=== PATIENT | male | born 1990 | race Caucasian/White ===

== ENCOUNTER 2016-07-05 09:32 | Emergency (ER) | payer OTHER ==
--- NOTE | 2016-07-05 10:40 | DIAGNOSTIC IMAGING REPORT ---
PROCEDURE: XR CHEST 1 VIEW INDICATION: SHORTNESS OF BREATH, initial encounter TECHNIQUE: Portable AP view 10:23 a.m. COMPARISON: None. FINDINGS: Lungs are clear. Heart and mediastinum are normal. Thorax is normal. IMPRESSION: 1. Negative chest.
--- NOTE | 2016-07-05 13:05 | ED CLINICAL REPORT ---
Clinical Report - Physicians/Mid Levels [facility] [address] [place] [address] 07/05/2016 9:35 Patient: FABRICIO HUNTER Time Seen: 09:40; initial patient contact. Arrived- By private vehicle. Historian- patient. HISTORY OF PRESENT ILLNESS Chief Complaint: DYSPNEA. This started about 2 days ago and is still present. The dyspnea is described as moderate and is worsened by cough and is improved by rest. The patient has had sputum production, a cough, fever and chills. No sweating episodes, wheezing, dyspnea on exertion or chest pain or discomfort. No calf pain, foot swelling, orthopnea, anxiety or palpitations. Similar symptoms previously: None. Recent medical care: Not recently seen/assessed. REVIEW OF SYSTEMS The patient has had a nasal discharge, sinus drainage and a sore throat but not had weight loss. No nausea, vomiting or abdominal pain. All systems otherwise negative, except as recorded above. PAST HISTORY PROBLEMS: Cancer SURGERIES: Leg. Medications: None. Allergies: Compazine. Hydrocodone. SOCIAL HISTORY Current every day smoker. 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 ADDITIONAL NOTES The nursing notes have been reviewed with agreement regarding the chief complaint, PMH and patient medications and allergies. PHYSICAL EXAM Vital Signs: 07/05/2016 09:37 BP: 122/72. HR: 145. RR: 22. O2 saturation: 100%. Temp: 99.7 F. Pain level now: 8/10. Have been reviewed. Blood pressure normal. Tachycardic. Tachypneic. Temperature normal. Oxygen saturation normal. Appearance: Alert. No acute distress. Eyes: Eyes normal inspection. ENT: Dry mucous membranes present. CVS: Tachycardia. Heart sounds normal. Rhythm normal. Respiratory: No respiratory distress. Breath sounds normal. Abdomen: Soft and nontender. Skin: Skin warm and dry. Normal skin color. No rash. Extremities: No calf tenderness. No lower extremity edema. Neuro: Oriented X 3. LABS, X-RAYS, AND EKG EKG: EKG time: (1011). Narrow-complex tachycardia (ventricular rate 136). Sinus tachycardia. Normal P waves. Normal CHRISTIN. Normal QRS complex. Normal axis. Normal ST and T waves, QT and QTc. Prior EKG unavailable. The study has been interpreted contemporaneously by me. The study has been independently viewed by me. The EKG appears to be a good tracing. I agree with and confirm the computer reading of the EKG. Interpretation time: 1011. Laboratory Tests: UA-Culture if indicated: (LIDIA: 07/05/2016 10:02) ( [facility]) Final results Test Result Flag Units (Reference) URINE COLOR YELLOW URINE APPEARANCE CLEAR URINE GLUCOSE NEGATIVE (NEGATIVE) URINE BILIRUBIN NEGATIVE (NEGATIVE) URINE KETONE NEGATIVE (NEGATIVE) URINE SPECIFIC GRAVITY 1.020 (1.010-1.030) URINE PH 8.5 H (5.0-8.0) URINE PROTEIN NEGATIVE (NEGATIVE) URINE UROBILINOGEN 0.2 EU/dL (0.2-1.0) URINE NITRITE NEGATIVE (NEGATIVE) URINE BLOOD NEGATIVE (NEGATIVE) URINE LEUK ESTERASE NEGATIVE (NEGATIVE) URINE RBC 0-1 rbc/hpf (0-1) URINE WBC RARE wbc/hpf (0-1) URINE EPITHELIAL CELLS NONE SEEN EPI/hpf (0-5) URINE BACTERIA NONE SEEN (NONE SEEN) URINE COMMENT CULT NOT INDICATED RARE CALCIUM PHOSPHATE CRYSTALSURINE CULTURES ARE SET-UP BASED ON THE FOLLOWING CRITERIA:POSITIVE NITRITEPOSITIVE LEUKOCYTE ESTERASEGREATER THAN 10 WHITE BLOOD CELLSMODERATE (2+) OR GREATER BACTERIA CBC w Diff: (LIDIA: 07/05/2016 09:55) ( [facility] 07/05/2016 10:36) Final results Test Result Flag Units (Reference) WHITE BLOOD COUNT 9.8 K/uL (4.5-11.5) RED BLOOD COUNT 4.72 M/uL (4.50-5.90) HEMOGLOBIN 13.6 gm/dL (13.5-17.5) HEMATOCRIT 41.8 % (41.0-53.0) MEAN CELL VOLUME 89 fL (80-100) MEAN CORPUSCULAR HGB 29 pg (26-34) MEAN CORPUSCULAR HGB CONC 33 g/dL (31-37) RED CELL DISTRIBUTION WIDTH 13.0 % (11.6-14.8) PLATELET COUNT 219 K/uL (150-400) POLY % 85 H % (50-75) BAND % 1 % (0-8) LYMPH 7 L % (25-40) MONO 6 % (3-14) EOSINOPHIL % 1 % (0-4) BASOPHIL % 0 % (0-2) METAMYELOCYTE % 0 % (0-1) MYELOCYTE 0 % (0-1) OTHER CELL TYPE 0 PT with INR: (LIDIA: 07/05/2016 09:55) ( [facility] 07/05/2016 10:22) Final results Test Result Flag Units (Reference) INR 0.9 (0.8-1.2) Low Intensity Therapy: INR 1.5-2.0 PT range 18.5-23.1Mod.Intensity Therapy: INR 2.0-3.0 PT range 23.1-31.5High Intensity Therapy: INR 2.5-3.5 PT range 27.4-35.5High Intensity Therapy 2: INR 3.0-4.0 PT range 31.5-39.3 APTT 32 SECONDS (24-34) D-DIMER QUANTITATIVE < 0.27 L ug/mLFEU (0.27-0.52) The primary value of this quantitative assay relates toits negative predictive value (i.e. exclusion) of pulmonaryembolism/deep vein thrombosis/DIC.Elevated levels of d-dimer may also occur with:, age, cancer, inflammation, liver disease,post-op, infection, hematoma, coronary disease, peripheralarteriopathy, bleeding disorders and thrombolytic treatment.Results should be correlated with other clinical andradiological data.Testing Methodology: Latex Immunoassay BNP: (LIDIA: 07/05/2016 09:55) ( [facility] [place]30) Final results Test Result Flag Units (Reference) B-TYPE NATRIURETIC PEPTIDE < 5.0 L pg/ml (5-100) CHEM 13 PANEL: (LIDIA: 07/05/2016 09:55) ( [facility] 10[facility]36) Final results Test Result Flag Units (Reference) GLUCOSE 89 mg/dL (70-110) BUN 13 mg/dL (7-18) CREATININE 1.0 mg/dL (0.6-1.3) Estimated GFR >60 mL/min Estimated GFR- >60 mL/min Note: Persistent reduction over 3 months in eGFR<60 mL/min/1.73 m2 defines CKD. Patients with eGFR values>=60 mL/min/1.73 m2 may also have CKD if evidence ofpersistent proteinuria. Additional information may be foundat www.kidney.org. SODIUM 141 mmol/L (136-145) POTASSIUM 4.3 mmol/L (3.5-5.1) CHLORIDE 105 mmol/L (98-107) CARBON DIOXIDE 31 mmol/L (21-32) CALCIUM 8.5 mg/dL (8.5-10.1) TOTAL PROTEIN 6.5 g/dL (6.4-8.2) ALBUMIN 3.5 g/dL (3.3-5.0) BILIRUBIN, TOTAL 0.1 mg/dL (0.0-1.0) ALKALINE PHOSPHATASE 79 U/L (46-116) AST (SGOT) 17 U/L (15-37) ALT (SGPT) 29 U/L (12-78) CPK 88 U/L (24-260) MAGNESIUM 1.6 L mg/dL (1.8-2.4) TROPONIN I <0.05 L ng/mL (0.00-1.5) TROPONIN REFERENCE RANGE:<0.1 NEGATIVE0.1-1.5 INDETERMINANT>1.5 POSITIVE Rapid Influenza Screen: (LIDIA: 07/05/2016 10:52) ( [facility] 07/05/2016 11:19) Final results SPECIMEN DESCRIPTION: ... Test Result Flag Units (Reference) RAPID INFLUENZA SCREEN CALLED TO: [facility] -- DATE: 07/05/16 INFLUENZA A: POSITIVE SCREEN FOR INFLUENZA A INFLUENZA B: NEGATIVE SCREEN FOR INFLUENZA B . PROGRESS AND PROCEDURES Disposition: Discharged home in good and improved condition. Condition: good. CLINICAL IMPRESSION Influenza type A with upper respiratory infection. INSTRUCTIONS Alternate Tylenol (Acetaminophen) or Motrin (Ibuprofen) for fever. Take according to label instructions. Rest at home today and tomorrow. Prescription Medications: Tamiflu 75 mg: take 1 capsule orally every 12 hours for 5 days. No refill. Substitution is permissible. Follow-up: Screening today revealed the patient's blood pressure to be in the normal range. (Electronically signed by Jimmie Butler Dr. 07/05/2016 22:37)
--- NOTE | 2016-07-05 13:05 | ED ORDER SUMMARY ---
..... Patient: FABRICIO HUNTER OrderSheet [facility] VisitID: [id number] [address] [place] [address] 26y, M Registration Date/Time: 07/05/2016 ORDER SHEET Weight: 22.6 kg (stated) Allergies: Compazine, Hydrocodone GENERAL ORDERS: Chest 1V Urgent (:07/05/2016 Jay Jay Solis) (Ack 10:00 LNations ER Tech1) UA-Culture if indicated Urgent (:07/05/2016 Jay Jay Solis) (Ack 10:00 LNations ER Tech1) PT with INR Urgent (:07/05/2016 Jay Jay Solis) (Ack 10:00 LNations ER Tech1) PTT Urgent (:07/05/2016 Jay Jay Solis) (Ack 10:00 LNations ER Tech1) Cardiac Panel Stat (:07/05/2016 Jay Jay Solis) (Ack 10:00 LNations ER Tech1) BNP Urgent (:07/05/2016 Jay Jay Solis) (Ack 10:00 LNations ER Tech1) D-Dimer Urgent (:07/05/2016 Jay Jay Solis) (Ack 10:00 LNations ER Tech1) EKG - ER Stat (:07/05/2016 Jay Jay Solis) (Ack 10:00 LNations ER Tech1) (10:11 LNations ER Tech1) Rapid Influenza Screen (Nasal Pharyngeal) (...) Urgent (10:41 07/05/2016 Jay Jay Solis) (Ack 10:43 LNations ER Tech1) MEDICATION ORDERS: IV FLUIDS: IV NS : initial bolus none -, then 1000 mL/hr for X1 (NOW) (09:42 07/05/2016 Jay Jay Solis) (Ack 9:46 Hoang R.N.) (10:10 DBblanca R.N.) Morphine IV 2 mg (HIGH ALERT MEDICATION, NOW) (10:07/05/2016 Jay Jay Solis) (10:57 Jannet R.N.) Previously tolerated Zofran IV 4 mg (NOW) (10:28 07/05/2016 Jay Jay Solis) (10:57 Jannet Pearson) Previously tolerated IV NS : initial bolus none -, then 1000 mL/hr for X1 (NOW) (11:24 07/05/2016 Jay Jay Solis) (11:39 Jannet Pearson) ORDER SHEET NOTES: [Electronically signed by Mu Caba R.N. (18:46 07/05/2016)] [Electronically signed by Jimmie Butler Dr. (22:37 07/05/2016)] [Electronically locked/signed by Mu Caba R.N. (18:46 07/05/2016)]
--- NOTE | 2016-07-05 13:05 | ED NURSING NOTES ---
Clinical Report - Nurses [facility] [address] [place] [address] 07/05/2016 9:35 Patient: FABRICIO HUNTER TRIAGE Triage time 09:37. Acuity: LEVEL 3. Chief Complaint: FEVER. Alert. COBY COMA SCORE: [place] Coma Scale: 15- eyes open spontaneously (4); best verbal response- oriented x 4 (5); best motor response- obeys commands (6). --09:42 Tomasa Mariee R.N. 09:37 07/05/16. BP: 122/72. HR: 145. RR: 22. O2 saturation: 100% on room air. Temp: 99.7 F (oral). Pain level now: 01/05. --09:42 Tomasa Mariee R.N. Weight: 22.6 kg stated. Height/Length: 67 inches Per Patient. BMI: 7.8. --09:40 Tomasa Mariee R.N. Medications None. --09:38 Tomasa Mariee R.N. Medication/allergy information source: the patient. --09:42 Tomasa Mariee R.N. Allergies Compazine. Hydrocodone. --09:38 Tomasa Mariee R.N. History Arrived by private vehicle. Historian: patient. Accompanied by friend. Primary physician (Shaheed). Onset. (about 2 days). ( no BM x2 days). SOCIAL HX: Heavy tobacco smoker- less than 1 pack per day. 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 No alcohol use. FALL RISK ASSESSMENT: Fall risk assessment completed. No fall risk identified. FUNCTIONAL ASSESSMENT: Functional assessment: no impairments noted. LEARNING NEEDS ASSESSMENT: The learning needs assessment revealed no barriers. --09:42 Tomasa Mariee R.N. 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 (0900). --10:09 Tomasa Mariee R.N. PROBLEMS: Cancer. --09:39 Kodi, Tomasa, R.N. ADDITIONAL SURGERIES: Leg. --09:39 Tomasa Mariee R.N. Assessment GENERAL / NEURO / PSYCH: The patient is awake and alert, is oriented and cooperative and appears uncomfortable. He has good eye contact. RESPIRATORY: Respirations not labored. SKIN: Skin is warm and dry. --09:42 Tomasa Mariee R.N. Interventions ID and allergy band on patient. To treatment room. --09:42 Tomasa Mariee R.N. PHYSICAL ASSESSMENT 10:07/05/16. To room via wheelchair. Patient gowned. GENERAL / NEURO / PSYCH: The patient is awake and alert, is oriented and cooperative and has good eye contact. RESPIRATORY: Respirations not labored. CVS: Cardiac rhythm: sinus tachycardia. SKIN: Skin is warm and dry. --10:09 Tomasa Mariee R.N. GENERAL / NEURO / PSYCH: Appears in distress. HEENT: Pupils equal, round and reactive to light. CVS: Cardiac rhythm: sinus tachycardia. SKIN: Skin is warm. Skin is diaphoretic. --10:14 Mu Caba R.N. NURSING PROGRESS NOTES 09:55 07/05/2016 Site #1 started via IV in the left antecubital space with an 20g angiocath, with aseptic technique and good blood return; two attempts. Blood drawn: rainbow set and cultures x1. Labeled in the presence of the patient and sent to the lab. --10:08 Tomasa Mariee R.N. 10:00 07/05/2016 Started bag #1 1000 mL IV Fluids IV NS (Saline); bolus of 1000 mL wide open via site #1. Allergies verified and confirmed 5 rights. IV patency established. IV site checked: no pain, redness, or swelling. IV flushed thoroughly pre- and post-medication administration. Completed per protocol (Started by tomasa). --10:10 Mu Caba R.N. 10:07/05/16. cotton weigher operator, pulse oximeter and NIBP monitor placed on patient. Patient gowned. Head of bed elevated. Call light placed in reach. Side rails up x 2. Bed placed in lowest position. Brakes of bed on. --10:07 Kodi, Tomasa, R.N. EKG time: (1011). EKG was ordered, performed by a tech and shown to the ED physician. --10:12 Jolanta Sparks, CULLEN Tech1 10:52 07/05/2016 Zofran (Ondansetron HCl) IVP 4 mg given over 2 minute(s) via site #1. Allergies verified and confirmed 5 rights. IV patency established. IV site checked: no pain, redness, or swelling. IV flushed thoroughly pre- and post-medication administration. IVP given by RN. --10:57 Mu Caba R.N. 10:57 07/05/2016 Morphine IVP 2 mg given over 2 minute(s) via site #1. Allergies verified, confirmed 5 rights and sedative warning given to the patient. IV patency established. IV site checked: no pain, redness, or swelling. IV flushed thoroughly pre- and post-medication administration. IVP given by RN. --10:57 Mu Caba R.N. 10:57 07/05/2016 IV Fluids IV NS Discontinued: bag #1 infused. Total amount infused: 1000 mL. IV patency established. IV site checked: no pain, redness, or swelling. IV flushed thoroughly. --10:57 Mu Caba R.N. 10:58 07/05/16. BP: 95/47. HR: 118. RR: 16. O2 saturation: 100%. Pain level now 8/10. --10:58 Mu Caba R.N. 11:20 07/05/16. Critical value relayed to ED by lab. Critical value received by RN. + flu A. Critical value read back. ED physician notifed of critical value. --11:20 Tomasa Mariee R.N. 11:29 07/05/2016 Started bag #1 1000 mL IV Fluids IV NS (Saline); bolus of 1000 mL wide open via site #1. Allergies verified and confirmed 5 rights. IV patency established. IV site checked: no pain, redness, or swelling. IV flushed thoroughly pre- and post-medication administration. --11:39 Mu Caba R.N. 11:39 07/05/16. BP: 97/51. HR: 119. RR: 16. O2 saturation: 100%. Pain level now 10. --11:40 Mu Caba R.N. ( Pt sleeping in bed wakes to verbal stimuli). --11:40 Mu Caba R.N. 12:02 07/05/16. Temp: 98.5 F. --12:03 Mu Caba R.N. 12:17 07/05/16. BP: 97/44. HR: 102. RR: 16. O2 saturation: 97%. --12:18 Mu Caba R.N. 12:31 07/05/2016 IV Fluids IV NS Discontinued: bag #2 infused. Total amount infused: 1000 mL. IV patency established. IV site checked: no pain, redness, or swelling. IV flushed thoroughly. --12:31 Mu Caba R.N. ( MD aware of BP, pt laying flat and sleeping in bed.). --12:45 Mu Caba R.N. 12:44 07/05/16. BP: 82/40. HR: 90. RR: 16. O2 saturation: 100%. Temp: 98.6 F. Pain level now 09/05. --12:45 Mu Caba R.N. Intake & Output 12:23 07/05/16. Urine: 400 mL, with return of yellow-colored clear urine. --12:23 Simon Larson R.N. DISPOSITION / DISCHARGE Departure time: 13:18 Jul 05 2016. No learning barriers present. Discharge instructions provided and reviewed with the patient. Patient verbalized understanding. Written instructions provided in Italian. The patient was discharged by the physician. He was discharged home and accompanied by family. He left the Emergency Department ambulatory and via private vehicle. Family member driving. ( Pt verbalized understanding of discharge instructions and follow up care.). --13:19 Mu aCba R.N. 13:17 07/05/16. BP: 88/47. HR: 90. RR: 18. O2 saturation: 100%. Temp: 98.6 F. Pain level now: 0/10. --13:19 Mu Caba R.N. Locked/Released at 07/05/2016 18:46 by Mu Caba R.N.
--- NOTE | 2016-07-05 13:05 | ED NURSING NOTES ---
Clinical Report - Nurses [facility] [address] [place] [address] 07/05/2016 9:35 Patient: FABRICIO HUNTER TRIAGE Triage time 09:37. Acuity: LEVEL 3. Chief Complaint: FEVER. Alert. COBY COMA SCORE: [place] Coma Scale: 15- eyes open spontaneously (4); best verbal response- oriented x 4 (5); best motor response- obeys commands (6). --09:42 Tomasa Mariee R.N. 09:37 07/05/16. BP: 122/72. HR: 145. RR: 22. O2 saturation: 100% on room air. Temp: 99.7 F (oral). Pain level now: 01/05. --09:42 Tomasa Mariee R.N. Weight: 22.6 kg stated. Height/Length: 67 inches Per Patient. BMI: 7.8. --09:40 Tomasa Mariee R.N. Medications None. --09:38 Tomasa Mariee R.N. Medication/allergy information source: the patient. --09:42 Tomasa Mariee R.N. Allergies Compazine. Hydrocodone. --09:38 Tomasa Mariee R.N. History Arrived by private vehicle. Historian: patient. Accompanied by friend. Primary physician (Shaheed). Onset. (about 2 days). ( no BM x2 days). SOCIAL HX: Heavy tobacco smoker- less than 1 pack per day. 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 No alcohol use. FALL RISK ASSESSMENT: Fall risk assessment completed. No fall risk identified. FUNCTIONAL ASSESSMENT: Functional assessment: no impairments noted. LEARNING NEEDS ASSESSMENT: The learning needs assessment revealed no barriers. --09:42 Tomasa Mariee R.N. 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 (0900). --10:09 Tomasa Mariee R.N. PROBLEMS: Cancer. --09:39 Kodi, Tomasa, R.N. ADDITIONAL SURGERIES: Leg. --09:39 Tomasa Mariee R.N. Assessment GENERAL / NEURO / PSYCH: The patient is awake and alert, is oriented and cooperative and appears uncomfortable. He has good eye contact. RESPIRATORY: Respirations not labored. SKIN: Skin is warm and dry. --09:42 Tomasa Mariee R.N. Interventions ID and allergy band on patient. To treatment room. --09:42 Tomasa Mariee R.N. PHYSICAL ASSESSMENT 10:07/05/16. To room via wheelchair. Patient gowned. GENERAL / NEURO / PSYCH: The patient is awake and alert, is oriented and cooperative and has good eye contact. RESPIRATORY: Respirations not labored. CVS: Cardiac rhythm: sinus tachycardia. SKIN: Skin is warm and dry. --10:09 Tomasa Mariee R.N. GENERAL / NEURO / PSYCH: Appears in distress. HEENT: Pupils equal, round and reactive to light. CVS: Cardiac rhythm: sinus tachycardia. SKIN: Skin is warm. Skin is diaphoretic. --10:14 Mu Caba R.N. NURSING PROGRESS NOTES 09:55 07/05/2016 Site #1 started via IV in the left antecubital space with an 20g angiocath, with aseptic technique and good blood return; two attempts. Blood drawn: rainbow set and cultures x1. Labeled in the presence of the patient and sent to the lab. --10:08 Tomasa Mariee R.N. 10:00 07/05/2016 Started bag #1 1000 mL IV Fluids IV NS (Saline); bolus of 1000 mL wide open via site #1. Allergies verified and confirmed 5 rights. IV patency established. IV site checked: no pain, redness, or swelling. IV flushed thoroughly pre- and post-medication administration. Completed per protocol (Started by tomasa). --10:10 Mu Caba R.N. 10:07/05/16. campus monitor, pulse oximeter and NIBP monitor placed on patient. Patient gowned. Head of bed elevated. Call light placed in reach. Side rails up x 2. Bed placed in lowest position. Brakes of bed on. --10:07 Kodi, Tomasa, R.N. EKG time: (1011). EKG was ordered, performed by a tech and shown to the ED physician. --10:12 Jolanta Sparks, CULLEN Tech1 10:52 07/05/2016 Zofran (Ondansetron HCl) IVP 4 mg given over 2 minute(s) via site #1. Allergies verified and confirmed 5 rights. IV patency established. IV site checked: no pain, redness, or swelling. IV flushed thoroughly pre- and post-medication administration. IVP given by RN. --10:57 Mu Caba R.N. 10:57 07/05/2016 Morphine IVP 2 mg given over 2 minute(s) via site #1. Allergies verified, confirmed 5 rights and sedative warning given to the patient. IV patency established. IV site checked: no pain, redness, or swelling. IV flushed thoroughly pre- and post-medication administration. IVP given by RN. --10:57 Mu Caba R.N. 10:57 07/05/2016 IV Fluids IV NS Discontinued: bag #1 infused. Total amount infused: 1000 mL. IV patency established. IV site checked: no pain, redness, or swelling. IV flushed thoroughly. --10:57 Mu Caba R.N. 10:58 07/05/16. BP: 95/47. HR: 118. RR: 16. O2 saturation: 100%. Pain level now 8/10. --10:58 Mu Caba R.N. 11:20 07/05/16. Critical value relayed to ED by lab. Critical value received by RN. + flu A. Critical value read back. ED physician notifed of critical value. --11:20 Tomasa Mariee R.N. 11:29 07/05/2016 Started bag #1 1000 mL IV Fluids IV NS (Saline); bolus of 1000 mL wide open via site #1. Allergies verified and confirmed 5 rights. IV patency established. IV site checked: no pain, redness, or swelling. IV flushed thoroughly pre- and post-medication administration. --11:39 Mu Caba R.N. 11:39 07/05/16. BP: 97/51. HR: 119. RR: 16. O2 saturation: 100%. Pain level now 10. --11:40 Mu Caba R.N. ( Pt sleeping in bed wakes to verbal stimuli). --11:40 Mu Caba R.N. 12:02 07/05/16. Temp: 98.5 F. --12:03 Mu Caba R.N. 12:17 07/05/16. BP: 97/44. HR: 102. RR: 16. O2 saturation: 97%. --12:18 Mu Caba R.N. 12:31 07/05/2016 IV Fluids IV NS Discontinued: bag #2 infused. Total amount infused: 1000 mL. IV patency established. IV site checked: no pain, redness, or swelling. IV flushed thoroughly. --12:31 Mu Caba R.N. ( MD aware of BP, pt laying flat and sleeping in bed.). --12:45 Mu Caba R.N. 12:44 07/05/16. BP: 82/40. HR: 90. RR: 16. O2 saturation: 100%. Temp: 98.6 F. Pain level now 09/05. --12:45 Mu Caba R.N. Intake & Output 12:23 07/05/16. Urine: 400 mL, with return of yellow-colored clear urine. --12:23 Simon Larson R.N. DISPOSITION / DISCHARGE Departure time: 13:18 Jul 05 2016. No learning barriers present. Discharge instructions provided and reviewed with the patient. Patient verbalized understanding. Written instructions provided in Spanish. The patient was discharged by the physician. He was discharged home and accompanied by family. He left the Emergency Department ambulatory and via private vehicle. Family member driving. ( Pt verbalized understanding of discharge instructions and follow up care.). --13:19 Mu Caba R.N. 13:17 07/05/16. BP: 88/47. HR: 90. RR: 18. O2 saturation: 100%. Temp: 98.6 F. Pain level now: 0/10. --13:19 Mu Caba R.N. Locked/Released at 07/05/2016 18:46 by Mu Caba R.N.
--- NOTE | 2016-07-05 13:05 | ED ORDER SUMMARY ---
..... Patient: FABRICIO HUNTER OrderSheet [facility] VisitID: [id number] [address] [place] [address] 26y, M Registration Date/Time: 07/05/2016 ORDER SHEET Weight: 22.6 kg (stated) Allergies: Compazine, Hydrocodone GENERAL ORDERS: Chest 1V Urgent (:07/05/2016 Jay Jay Solis) (Ack 10:00 LNations ER Tech1) UA-Culture if indicated Urgent (:07/05/2016 Jay Jay Solis) (Ack 10:00 LNations ER Tech1) PT with INR Urgent (:07/05/2016 Jay Jay Solis) (Ack 10:00 LNations ER Tech1) PTT Urgent (:07/05/2016 Jay Jay Solis) (Ack 10:00 LNations ER Tech1) Cardiac Panel Stat (:07/05/2016 Jay Jay Solis) (Ack 10:00 LNations ER Tech1) BNP Urgent (:07/05/2016 Jay Jay Solis) (Ack 10:00 LNations ER Tech1) D-Dimer Urgent (:07/05/2016 Jay Jay Solis) (Ack 10:00 LNations ER Tech1) EKG - ER Stat (:07/05/2016 Jay Jay Solis) (Ack 10:00 LNations ER Tech1) (10:11 LNations ER Tech1) Rapid Influenza Screen (Nasal Pharyngeal) (...) Urgent (10:41 07/05/2016 Jay Jay Solis) (Ack 10:43 LNations ER Tech1) MEDICATION ORDERS: IV FLUIDS: IV NS : initial bolus none -, then 1000 mL/hr for X1 (NOW) (09:42 07/05/2016 Jay Jay Solis) (Ack 9:46 Hoang R.N.) (10:10 DBblanca R.N.) Morphine IV 2 mg (HIGH ALERT MEDICATION, NOW) (10:07/05/2016 Jay Jay Solis) (10:57 Jannet R.N.) Previously tolerated Zofran IV 4 mg (NOW) (10:28 07/05/2016 Jay Jay Solis) (10:57 Jannet Pearson) Previously tolerated IV NS : initial bolus none -, then 1000 mL/hr for X1 (NOW) (11:24 07/05/2016 Jay Jay Solis) (11:39 Jannet Pearson) ORDER SHEET NOTES: [Electronically signed by Mu Caba R.N. (18:46 07/05/2016)] [Electronically signed by Jimmie Butler Dr. (22:37 07/05/2016)] [Electronically locked/signed by Mu Caba R.N. (18:46 07/05/2016)]
--- NOTE | 2016-07-05 22:37 | ED MED RECONCILIATION SUMMARY ---
Patient: ELSAPRIMOMichelle Jose Medication Reconciliation Report [facility] VisitID: [id number] [address] [place] [address] 26y, M Registration Date/Time: 07/05/2016 Weight: 22.6 kg Height/Length: 67 in. BMI: 7.8 ALLERGIES: Compazine, Hydrocodone The patient's Home Medications are listed below: NONE. The source(s) of the original Home Medication information: patient The following Medications were given to the patient in the Emergency Department: IV NS IV Fluids bolus 1000 mL wide open, administered: 07/05/2016 10:00:00 AM Zofran [IVP] IVP 4 mg, administered: 07/05/2016 10:52:00 AM Morphine [IVP] IVP 2 mg, administered: 07/05/2016 10:57:00 AM IV NS IV Fluids bolus 1000 mL wide open, administered: 07/05/2016 11:29:00 AM The following Medications were prescribed to the patient: Tamiflu 75 mg: take 1 capsule orally every 12 hours for 5 days. No refill. Substitution is permissible. -- Jimmie Butler Dr.
--- NOTE | 2016-07-05 22:37 | ED DISCHARGE INSTRUCTIONS ---
Patient: FABRICIO HUNTER General Instructions [facility] VisitID: [id number] [place] [address] 26y, M Registration Date/Time: 07/05/2016 Influenza type A with upper respiratory infection. INSTRUCTIONS Alternate Tylenol (Acetaminophen) or Motrin (Ibuprofen) for fever. Take according to label instructions. Rest at home today and tomorrow. Prescription Medications: Tamiflu 75 mg: take 1 capsule orally every 12 hours for 5 days. No refill. Substitution is permissible. Follow-up: Screening today revealed the patient's blood pressure to be in the normal range. ADDITIONAL INFORMATION Fever Control (Adult) A fever is a natural reaction of the body to an illness. In most cases, the temperature itself is not harmful. It actually helps the body fight infections. A fever does not need to be treated unless you feel very uncomfortable. Home Care If you feel warm, check your temperature. If you feel very uncomfortable and your temperature is at or higher than 100.4F (38C) oral, you may take acetaminophen (Tylenol) every 4 to 6 hours. If you cant take or keep down oral medicine, ask your pharmacist for Tylenol suppositories, which you can get without a prescription. If the fever does not respond to acetaminophen within 1 hour, take ibuprofen (Advil or Motrin). If this works, keep taking the ibuprofen every 6 to 8 hours. Note: If you have chronic liver or kidney disease or ever had a stomach ulcer or GI bleeding, talk with your doctor before using these medications. If either medication alone does not keep the fever down, you may alternate the two medicines every 3 to 4 hours, only if your healthcare provider has instructed you to do so. For example, take Motrin then wait 3 hours, take Tylenol then wait 3 hours, take Motrin, and so on. Follow your healthcare providers instructions exactly. Clothing: Keep clothing light because excess body heat is lost through the skin. The fever will go up if you wear extra layers or wrap in blankets. Fluids: Fever causes the body to lose water through evaporation. Drink plenty of fluids such as water, juice, clear sodas, mavis aimee, or lemonade. Do not use aspirin in anyone under 18 years of age who is ill with a fever. It can cause severe liver damage. Follow Up with your doctor or as advised by our staff if you do not get better after 48 hours. Get Prompt Medical Attention if any of the following occur: Fever does not get better after taking fever medication Fast or difficult breathing Earache, sinus pain, stiff or painful neck, headache, repeated diarrhea or vomiting You feel unusually irritable, drowsy, or confused A rash appears You feel weak or dizzy, or that you might faint Oseltamivir Phosphate Oral capsule What is this medicine? OSELTAMIVIR (os el FLORES i vir) is an antiviral medicine. It is used to prevent and to treat some kinds of influenza or the flu. It will not work for colds or other viral infections. How should I use this medicine? Take this medicine by mouth with a glass of water. Follow the directions on the prescription label. Start this medicine at the first sign of flu symptoms. You can take it with or without food. If it upsets your stomach, take it with food. Take your medicine at regular intervals. Do not take your medicine more often than directed. Take all of your medicine as directed even if you think you are better. Do not skip doses or stop your medicine early. Talk to your director paid media regarding the use of this medicine in children. While this drug may be prescribed for children as young as 14 days for selected conditions, precautions do apply. What side effects may I notice from receiving this medicine? Side effects that you should report to your doctor or health janitor caretaker as soon as possible: allergic reactions like skin rash, itching or hives, swelling of the face, lips, or tongue anxiety, confusion, unusual behavior breathing problems hallucination, loss of contact with reality redness, blistering, peeling or loosening of the skin, including inside the mouth seizures Side effects that usually do not require medical attention (report to your doctor or health janitor caretaker if they continue or are bothersome): cough diarrhea dizziness headache nausea, vomiting stomach pain What may interact with this medicine? Interactions are not expected. What if I miss a dose? If you miss a dose, take it as soon as you remember. If it is almost time for your next dose (within 2 hours), take only that dose. Do not take double or extra doses. Where should I keep my medicine? Keep out of the reach of children. Store at room temperature between 15 and 30 degrees C (59 and 86 degrees F). Throw away any unused medicine after the expiration date. What should I tell my health care provider before I take this medicine? They need to know if you have any of the following conditions: heart disease immune system problems kidney disease liver disease lung disease an unusual or allergic reaction to oseltamivir, other medicines, foods, dyes, or preservatives or trying to get breast-feeding What should I watch for while using this medicine? Visit your doctor or health janitor caretaker for regular check ups. Tell your doctor if your symptoms do not start to get better or if they get worse. If you have the flu, you may be at an increased risk of developing seizures, confusion, or abnormal behavior. This occurs early in the illness, and more frequently in children and teens. These events are not common, but may result in accidental injury to the patient. Families and caregivers of patients should watch for signs of unusual behavior and contact a doctor or health janitor caretaker right away if the patient shows signs of unusual behavior. This medicine is not a substitute for the flu shot. Talk to your doctor each year about an annual flu shot. You have been given the following additional information: Fever Control (Adult) Oseltamivir Phosphate Oral capsule Rest at home today and tomorrow. (Electronically signed by Jimmie Butler Dr. 07/05/2016 22:37)
--- NOTE | 2016-07-05 22:37 | ED MED RECONCILIATION SUMMARY ---
Patient: ELSAPRIMOMichelle Jose Medication Reconciliation Report [facility] VisitID: [id number] [address] [place] [address] 26y, M Registration Date/Time: 07/05/2016 Weight: 22.6 kg Height/Length: 67 in. BMI: 7.8 ALLERGIES: Compazine, Hydrocodone The patient's Home Medications are listed below: NONE. The source(s) of the original Home Medication information: patient The following Medications were given to the patient in the Emergency Department: IV NS IV Fluids bolus 1000 mL wide open, administered: 07/05/2016 10:00:00 AM Zofran [IVP] IVP 4 mg, administered: 07/05/2016 10:52:00 AM Morphine [IVP] IVP 2 mg, administered: 07/05/2016 10:57:00 AM IV NS IV Fluids bolus 1000 mL wide open, administered: 07/05/2016 11:29:00 AM The following Medications were prescribed to the patient: Tamiflu 75 mg: take 1 capsule orally every 12 hours for 5 days. No refill. Substitution is permissible. -- Jimmie Butler Dr.
--- NOTE | 2016-07-05 22:37 | ED DISCHARGE INSTRUCTIONS ---
Patient: FABRICIO HUNTER General Instructions [facility] VisitID: [id number] [place] [address] 26y, M Registration Date/Time: 07/05/2016 Influenza type A with upper respiratory infection. INSTRUCTIONS Alternate Tylenol (Acetaminophen) or Motrin (Ibuprofen) for fever. Take according to label instructions. Rest at home today and tomorrow. Prescription Medications: Tamiflu 75 mg: take 1 capsule orally every 12 hours for 5 days. No refill. Substitution is permissible. Follow-up: Screening today revealed the patient's blood pressure to be in the normal range. ADDITIONAL INFORMATION Fever Control (Adult) A fever is a natural reaction of the body to an illness. In most cases, the temperature itself is not harmful. It actually helps the body fight infections. A fever does not need to be treated unless you feel very uncomfortable. Home Care If you feel warm, check your temperature. If you feel very uncomfortable and your temperature is at or higher than 100.4F (38C) oral, you may take acetaminophen (Tylenol) every 4 to 6 hours. If you cant take or keep down oral medicine, ask your pharmacist for Tylenol suppositories, which you can get without a prescription. If the fever does not respond to acetaminophen within 1 hour, take ibuprofen (Advil or Motrin). If this works, keep taking the ibuprofen every 6 to 8 hours. Note: If you have chronic liver or kidney disease or ever had a stomach ulcer or GI bleeding, talk with your doctor before using these medications. If either medication alone does not keep the fever down, you may alternate the two medicines every 3 to 4 hours, only if your healthcare provider has instructed you to do so. For example, take Motrin then wait 3 hours, take Tylenol then wait 3 hours, take Motrin, and so on. Follow your healthcare providers instructions exactly. Clothing: Keep clothing light because excess body heat is lost through the skin. The fever will go up if you wear extra layers or wrap in blankets. Fluids: Fever causes the body to lose water through evaporation. Drink plenty of fluids such as water, juice, clear sodas, mavis aimee, or lemonade. Do not use aspirin in anyone under 18 years of age who is ill with a fever. It can cause severe liver damage. Follow Up with your doctor or as advised by our staff if you do not get better after 48 hours. Get Prompt Medical Attention if any of the following occur: Fever does not get better after taking fever medication Fast or difficult breathing Earache, sinus pain, stiff or painful neck, headache, repeated diarrhea or vomiting You feel unusually irritable, drowsy, or confused A rash appears You feel weak or dizzy, or that you might faint Oseltamivir Phosphate Oral capsule What is this medicine? OSELTAMIVIR (os el FLORES i vir) is an antiviral medicine. It is used to prevent and to treat some kinds of influenza or the flu. It will not work for colds or other viral infections. How should I use this medicine? Take this medicine by mouth with a glass of water. Follow the directions on the prescription label. Start this medicine at the first sign of flu symptoms. You can take it with or without food. If it upsets your stomach, take it with food. Take your medicine at regular intervals. Do not take your medicine more often than directed. Take all of your medicine as directed even if you think you are better. Do not skip doses or stop your medicine early. Talk to your cnc set up operator regarding the use of this medicine in children. While this drug may be prescribed for children as young as 14 days for selected conditions, precautions do apply. What side effects may I notice from receiving this medicine? Side effects that you should report to your doctor or health home care associate as soon as possible: allergic reactions like skin rash, itching or hives, swelling of the face, lips, or tongue anxiety, confusion, unusual behavior breathing problems hallucination, loss of contact with reality redness, blistering, peeling or loosening of the skin, including inside the mouth seizures Side effects that usually do not require medical attention (report to your doctor or health home care associate if they continue or are bothersome): cough diarrhea dizziness headache nausea, vomiting stomach pain What may interact with this medicine? Interactions are not expected. What if I miss a dose? If you miss a dose, take it as soon as you remember. If it is almost time for your next dose (within 2 hours), take only that dose. Do not take double or extra doses. Where should I keep my medicine? Keep out of the reach of children. Store at room temperature between 15 and 30 degrees C (59 and 86 degrees F). Throw away any unused medicine after the expiration date. What should I tell my health care provider before I take this medicine? They need to know if you have any of the following conditions: heart disease immune system problems kidney disease liver disease lung disease an unusual or allergic reaction to oseltamivir, other medicines, foods, dyes, or preservatives or trying to get breast-feeding What should I watch for while using this medicine? Visit your doctor or health home care associate for regular check ups. Tell your doctor if your symptoms do not start to get better or if they get worse. If you have the flu, you may be at an increased risk of developing seizures, confusion, or abnormal behavior. This occurs early in the illness, and more frequently in children and teens. These events are not common, but may result in accidental injury to the patient. Families and caregivers of patients should watch for signs of unusual behavior and contact a doctor or health home care associate right away if the patient shows signs of unusual behavior. This medicine is not a substitute for the flu shot. Talk to your doctor each year about an annual flu shot. You have been given the following additional information: Fever Control (Adult) Oseltamivir Phosphate Oral capsule Rest at home today and tomorrow. (Electronically signed by Jimmie Butler Dr. 07/05/2016 22:37)
--- NOTE | 2016-07-05 22:37 | ED MAR SUMMARY ---
..... Medication Administration Record [facility] [address] [place] [address] Patient: FABRICIO HUNTER Visit ID: [id number] 26y, M Weight: 22.6 kg Height/Length: 67 in BMI: 7.8 ALLERGIES: Hydrocodone, Compazine Start 10:00 07/05/2016 Mu Caba R.N., Stop 10:57 07/05/2016 Mu Caba R.N. Medication Administered: IV NS (SALINE), Dose: IV Fluids, Bolus: 1000 mL wide open, Dispensed: 1000 mL bag, Site: #1 left AC. Medication Ordered: IV NS : initial bolus none -, then 1000 mL/hr for X1 (NOW). Given 10:52 07/05/2016 Mu Caba R.N. Medication Administered: ZOFRAN [IVP] (ONDANSETRON HCL), Dose: 4 mg IVP over 2 minute(s), Site: #1 left AC. Medication Ordered: Zofran IV 4 mg (NOW). Given 10:57 07/05/2016 Mu Caba R.N. Medication Administered: MORPHINE [IVP], Dose: 2 mg IVP over 2 minute(s), Site: #1 left AC. Medication Ordered: Morphine IV 2 mg (HIGH ALERT MEDICATION, NOW). Start 11:29 07/05/2016 Mu Caba R.N., Stop 12:31 07/05/2016 Mu Caba R.N. Medication Administered: IV NS (SALINE), Dose: IV Fluids, Bolus: 1000 mL wide open, Dispensed: 1000 mL bag, Site: #1 left AC. Medication Ordered: IV NS : initial bolus none -, then 1000 mL/hr for X1 (NOW).
--- NOTE | 2016-07-05 22:37 | ED MAR SUMMARY ---
..... Medication Administration Record [facility] [address] [place] [address] Patient: FABRICIO HUNTER Visit ID: [id number] 26y, M Weight: 22.6 kg Height/Length: 67 in BMI: 7.8 ALLERGIES: Hydrocodone, Compazine Start 10:00 07/05/2016 Mu Caba R.N., Stop 10:57 07/05/2016 Mu Caba R.N. Medication Administered: IV NS (SALINE), Dose: IV Fluids, Bolus: 1000 mL wide open, Dispensed: 1000 mL bag, Site: #1 left AC. Medication Ordered: IV NS : initial bolus none -, then 1000 mL/hr for X1 (NOW). Given 10:52 07/05/2016 Mu Caba R.N. Medication Administered: ZOFRAN [IVP] (ONDANSETRON HCL), Dose: 4 mg IVP over 2 minute(s), Site: #1 left AC. Medication Ordered: Zofran IV 4 mg (NOW). Given 10:57 07/05/2016 Mu Caba R.N. Medication Administered: MORPHINE [IVP], Dose: 2 mg IVP over 2 minute(s), Site: #1 left AC. Medication Ordered: Morphine IV 2 mg (HIGH ALERT MEDICATION, NOW). Start 11:29 07/05/2016 Mu Caba R.N., Stop 12:31 07/05/2016 Mu Caba R.N. Medication Administered: IV NS (SALINE), Dose: IV Fluids, Bolus: 1000 mL wide open, Dispensed: 1000 mL bag, Site: #1 left AC. Medication Ordered: IV NS : initial bolus none -, then 1000 mL/hr for X1 (NOW).
== END 2016-07-05 13:39 | disposition home or self-care (01) ==
LOC: ED SRH 09:32
DX: J10.1 Influenza due to other identified influenza virus with other respiratory manifestations (principal); F17.210 Nicotine dependence, cigarettes, uncomplicated; Z88.5 Allergy status to narcotic agent
CPT/HCPCS: 90004; 90100; 90616; 91320; 91400; 91556; 91643; 92610; 92720; 94001; 94060; 95059